=== PATIENT | male | born 1960 | race Caucasian/White ===

== ENCOUNTER 2019-04-14 07:24 | Day surgery (SDC) | payer OTHER ==
[~2019-04-14] VITALS: Ht 175.3 cm; Wt 123.0 kg
[~2019-04-14 07:24] MED LIST: ALBU8.5H8 IH; AMLO-511 PO; ASPI-1182 PO; CETI10TA59 PO; FINA5TAB41 PO; FLUT100D2 PO; GABA-531 PO; HYD25 PO; IBUP-2070 PO; LOSA25TA41 PO; METO25XL PO; MONT10TA21 PO; RANI150T7 PO; RIVA10 PO; ROSU20TA23 PO; TAMS-1 PO; TIOT4MIS2 PO
[2019-04-14] MEDS ORDERED: METOPROLOL TARTRATE 50 MG TABLET PO ONE (08:00)
[2019-04-14] MEDS ORDERED: 0.9% SODIUM CHLORIDE 10 ML SYRINGE IVP PRN (08:00)
[2019-04-14] MEDS ORDERED: METOPROLOL TARTRATE 50 MG TABLET ONE (08:03)
[2019-04-14 08:20] LABS: ANION GAP 11 mmol/L (8-16); CALCIUM, TOTAL 8.6 mg/dL (8.8-10.5); CARBON DIOXIDE 23 mmol/L (22-29); CHLORIDE 107 mmol/L (98-107); CREATININE 1.14 mg/dL (0.60-1.30); GLOMERULAR FILTR. RATE CALC > 60 mL/min (>60); GLUCOSE,RANDOM 111 mg/dL (70-110); POTASSIUM 3.8 mmol/L (3.5-5.1); SODIUM SERUM 141 mmol/L (136-145); UREA NITROGEN, BLOOD 26 mg/dL (7-18)
[2019-04-14] MEDS ORDERED: METOPROLOL TARTRATE 5 MG/5 ML VIAL ONE ×2 (09:07→10:08)
[2019-04-14] MEDS ORDERED: METOPROLOL TARTRATE 5 MG/5 ML VIAL IVP ONE (09:15)
[2019-04-14] MEDS ORDERED: IOVERSOL 350 MG/ML 150 ML VIAL ONE (09:50)
[2019-04-14] MEDS ORDERED: SODIUM CHLORIDE 0.9% 100 ML ONE (09:50)
[2019-04-14] MEDS ORDERED: NITROGLYCERIN 400 MCG/SUBLINGUAL SPRAY 4.9 GM BOTTLE SL ONE ×2 (10:09→10:21)
== END 2019-04-14 11:05 | disposition home or self-care (01) ==
LOC: SURGERY 07:24 → EDSTATUS 09:30 → SURGERY 11:05
PROVIDERS: ATTEND Internal Medicine Cardiovascular Disease
DX: R07.9 Chest pain, unspecified (principal); I73.9 Peripheral vascular disease, unspecified; E78.00 Pure hypercholesterolemia, unspecified; Z86.718 Personal history of other venous thrombosis and embolism; Z87.891 Personal history of nicotine dependence; Z79.899 Other long term (current) drug therapy; Z79.82 Long term (current) use of aspirin; Z88.0 Allergy status to penicillin; Z91.040 Latex allergy status
CPT/HCPCS: 36415; 75574; 80048; 93005; J3490; J7050; Q9967